=== PATIENT | male | born 1970 | race Caucasian/White ===

== ENCOUNTER 2021-05-24 12:23 | Emergency (ER) | payer MEDICAID ==
[~2021-05-24] VITALS: Ht 190.5 cm; Wt 86.2 kg
[2021-05-24] MEDS ORDERED: HYDROCODON-ACE1 EA11 PO (14:12)
== END 2021-05-24 14:34 | disposition home or self-care (01) ==
LOC: ED 12:23
DX: M79.89 Other specified soft tissue disorders (principal)
CPT/HCPCS: 99283; A9270